=== PATIENT | male | born 1975 | race American Indian/Alaskan Native ===

== ENCOUNTER 2017-11-01 10:23 | Emergency (ER) | payer SELFPAY ==
[2017-11-01] MEDS ORDERED: BENTYL IM ONE (13:23)
[2017-11-01] MEDS ORDERED: ALUM-MAG HYDROX-SIMETH 200-200-20MG/5ML PO ONE (13:23)
--- NOTE | 2017-11-01 13:23 | Emergency Department Report ---
Blank Doc - Documentation Documentation: Patient is a 42-year-old male who presented with 2 days of epigastric discomfort. Patient states the pain as a burning sensation. Patient has some mild nausea as well. The patient denies any heavy drinking or abnormal foods. The patient will have labs drawn including a lipase as well as ultrasound of the abdomen to rule out gallstones.
[2017-11-01 13:56] LABS: Basophils # (Auto) 0.1 K/mm3 (0.0-0.1); Basophils % (Auto) 0.4 % (0.0-1.8); Hematocrit 43.7 % (35.5-45.6); Lymphocytes # (Auto) 1.4 K/mm3 (1.2-5.4); Lymphocytes % (Auto) 9.7 % (13.4-35.0); Mean Corpuscular HGB Conc 34 % (32-34); Mean Corpuscular Hemoglobin 32 pg (28-32); Mean Corpuscular Volume 92 fl (84-94); Monocytes # (Auto) 1.1 K/mm3 (0.0-0.8); Monocytes % (Auto) 7.4 % (0.0-7.3); Platelet Count 189 K/mm3 (140-440); Red Blood Count 4.75 M/mm3 (3.65-5.03); Red Cell Distribution Width 13.5 % (13.2-15.2)
[2017-11-01 14:06] LABS: Alanine Aminotransferase 34 units/L (7-56); Albumin 4.2 g/dL (3.9-5); BUN/Creatinine Ratio 10; Blood Urea Nitrogen 10 mg/dL (9-20); Calcium 9.2 mg/dL (8.4-10.2); Hemolysis Index 5; Lipase 22 units/L (13-60)
[2017-11-01] MEDS ORDERED: NORCO 5/325 PO ONE ×2 (14:39→17:04)
[2017-11-01] MEDS ORDERED: NORCO 5/325 ONE (14:40)
--- NOTE | 2017-11-01 15:00 | Ultrasound Report ---
Limited abdominal ultrasound: Right upper quadrant/epigastric pain. Limited quality exam due to patient habitus. Images of the liver are grossly normal. The gallbladder is relatively well visualized and also appears unremarkable and the CBD diameter is 3.4 mm. The mid body of the pancreas is visualized and appears normal. The pancreatic head and tail however are not well seen. The right renal length is 10.6 cm and is echogenically unremarkable. The transverse diameter of the proximal abdominal aorta is 2.2 cm. Impression: Limited quality study. No pathology identified.
--- NOTE | 2017-11-01 17:05 | Emergency Department Report ---
ED Abdominal Pain HPI - General Chief Complaint: Abdominal Pain Stated Complaint: CHEST /ABD PAIN Time Seen by Provider: 11/01/17 13:15 Source: patient Mode of arrival: Ambulatory Limitations: No Limitations - History of Present Illness Initial Comments: This is a 42 y.o. male presents with abdominal pain and lower chest pain for 2 days. Patient states he could hardly get out of bed this morning. History of diverticulosis. He is trying to watch diet to loose weight. He started eating nutragrain bars last week. He felt fine until this Sunday. He has not tried taking anything over the counter. Reports being treated for diverticulitis several years ago and try to avoid nuts but it is hard to do. Denies nausea, vomiting, diarrhea, and chest pain. MD Complaint: abdominal pain -: days(s) (2) Location: diffuse Radiation: chest Migration to: epigastric Severity scale (0 -10): 10 Quality: cramping, sharp Consistency: intermittent Improves With: nothing Worsens With: movement Associated Symptoms: fever - Related Data Previous Rx's Medication Instructions Recorded Last Taken Type Ciprofloxacin HCl [Cipro] 500 mg PO BID 10 Days #20 tablet 11/01/17 Unknown Rx Ondansetron [Zofran TAB] 4 mg PO Q8HR PRN #20 tablet 11/01/17 Unknown Rx metroNIDAZOLE [Flagyl] 500 mg PO Q8HR 10 Days #30 tablet 11/01/17 Unknown Rx Allergies Allergy/AdvReac Type Severity Reaction Status Date / Time No Known Allergies Allergy Unverified 11/01/17 13:39 ED Review of Systems ROS: Stated complaint: CHEST /ABD PAIN Other details as noted in HPI Constitutional: fever. denies: chills Respiratory: denies: cough, shortness of breath, wheezing Cardiovascular: denies: chest pain, palpitations Gastrointestinal: abdominal pain (diffuse pain). denies: nausea, vomiting, diarrhea, constipation Neurological: denies: headache, weakness, paresthesias ED Past Medical Hx - Past Medical History Previous Medical History?: Yes Additional medical history: Diverticulitis - Surgical History Past Surgical History?: No - Social History Smoking Status: Never Smoker Substance Use Type: Alcohol - Medications Home Medications: Home Medications Medication Instructions Recorded Confirmed Last Taken Type Ciprofloxacin HCl [Cipro] 500 mg PO BID 10 Days #20 tablet 11/01/17 Unknown Rx Ondansetron [Zofran TAB] 4 mg PO Q8HR PRN #20 tablet 11/01/17 Unknown Rx metroNIDAZOLE [Flagyl] 500 mg PO Q8HR 10 Days #30 tablet 11/01/17 Unknown Rx ED Physical Exam - General Limitations: No Limitations General appearance: alert, in no apparent distress - Respiratory Respiratory exam: Present: normal lung sounds bilaterally. Absent: respiratory distress - Cardiovascular Cardiovascular Exam: Present: regular rate, normal rhythm. Absent: systolic murmur, diastolic murmur, rubs, gallop - GI/Abdominal GI/Abdominal exam: Present: soft, tenderness (RLQ, RUQ, LLQ), hyperactive bowel sounds - Neurological Exam Neurological exam: Present: alert, oriented X3, normal gait - Skin Skin exam: Present: warm, dry, intact, normal color. Absent: rash ED Course Vital Signs 11/01/17 11/01/17 11/01/17 10:42 14:41 18:23 Temperature 99 F 97.8 F Pulse Rate 98 H 84 Respiratory 20 16 18 Rate Blood Pressure 124/79 Blood Pressure 128/79 [Left] O2 Sat by Pulse 95 99 Oximetry ED Medical Decision Making - Lab Data Result diagrams: 11/01/17 13:28 11/01/17 13:28 - Medical Decision Making This is a 42 y.o. male presents with abdominal pain and chest pain for 2 days. Patient was examined by me. Obtained CBC, CMP, US, and CT of abdomen and pelvis. CT read by radiologist and acute diverticulitis. Discussed results with patient. Given metronidazole and norco once in ER. Discharged home in stable condition. Start metronidazole 500 mg po tid x 10 days, cipro 500 mg po bid x 10 days, zofran. Discussed prevention options. F/U with PCP or gastroenterology. Critical care attestation.: If time is entered above; I have spent that time in minutes in the direct care of this critically ill patient, excluding procedure time. ED Disposition Clinical Impression: Acute diverticulitis Disposition: - TO HOME OR SELFCARE Is pt being admited?: No Does the pt Need Aspirin: No Condition: Stable Instructions: Diverticulitis (ED), Diverticulitis Diet (ED) Additional Instructions: Start a high fiber diet to prevent reoccurrence of infection. Avoid consuming seeds, corn, and nuts. Follow up with primary care provider or gastroenterology. Need colonoscopy. Prescriptions: Ciprofloxacin HCl [Cipro] 500 mg PO BID 10 Days #20 tablet metroNIDAZOLE [Flagyl] 500 mg PO Q8HR 10 Days #30 tablet Ondansetron [Zofran TAB] 4 mg PO Q8HR PRN #20 tablet PRN Reason: Nausea Referrals: [facility] [Provider Group] - 3-5 Days [facility] [Outside] - 3-[address] [facility] [Outside] - 3-5 Days Forms: Work/School Release Form(ED) Time of Disposition: 18:06 Print Language: WELSH
--- NOTE | 2017-11-01 17:53 | Cat Scan Report ---
FINAL REPORT EXAM: CT ABDOMEN PELVIS WO CON HISTORY: abdominal pain, US limited quality TECHNIQUE: CT abdomen and pelvis with intravenous contrast PRIORS: None. FINDINGS: No acute abnormality identified in the lung bases. No focal abnormality identified within the liver parenchyma. The spleen demonstrates normal size and attenuation. No pancreatic abnormalities seen. The kidneys demonstrate symmetric contrast enhancement. No evidence of hydronephrosis. The adrenal glands are unremarkable Abdominal aorta is normal in caliber. No pathologically enlarged lymph nodes are identified. No signs of free fluid or free air No evidence of small bowel dilatation. There is strandy and inflammatory pericolonic change within the right upper quadrant centered approximately at the hepatic flexure. There are numerous diverticula present throughout the colon. No focal extra luminal abscess collection or free air identified. The appendix is identified and is unremarkable. Urinary bladder is unremarkable. IMPRESSION: Right upper quadrant pericolonic inflammatory changes with multiple diverticula present. Findings are most consistent with acute diverticulitis
[2017-11-01] MEDS ORDERED: FLAGYL PO ONE (18:07)
[2017-11-01 18:24] VITALS: BP 128/79
== END 2017-11-01 18:47 | disposition home or self-care (01) ==
LOC: ED 10:23
DX: K57.92 Diverticulitis of intestine, part unspecified, without perforation or abscess without bleeding (principal)
CPT/HCPCS: 36415; 74176; 76705; 80053; 83690; 85025; 93005; 93010; 96372; 99284; J0500

== ENCOUNTER 2017-12-05 12:57 | Emergency (ER) | payer SELFPAY | END 2017-12-05 14:03 | disposition left against medical advice (07) | LOC: ED 12:57 | DX: M79.604 Pain in right leg (principal); M79.601 Pain in right arm; Z53.21 Procedure and treatment not carried out due to patient leaving prior to being seen by health care provider ==

== ENCOUNTER 2018-01-16 08:40 | Emergency (ER) | payer OTHER ==
[2018-01-16 09:43] LABS: Basophils % (Auto) 0.4 % (0.0-1.8); Eosinophils % (Auto) 0.2 % (0.0-4.3); Hematocrit 43.3 % (35.5-45.6); Hemoglobin 15.2 gm/dl (11.8-15.2); Lymphocytes # (Auto) 1.9 K/mm3 (1.2-5.4); Lymphocytes % (Auto) 14.8 % (13.4-35.0); Mean Corpuscular HGB Conc 35 % (32-34); Mean Corpuscular Hemoglobin 32 pg (28-32); Mean Corpuscular Volume 90 fl (84-94); Monocytes # (Auto) 1.2 K/mm3 (0.0-0.8); Monocytes % (Auto) 9.1 % (0.0-7.3); Platelet Count 186 K/mm3 (140-440); Red Blood Count 4.83 M/mm3 (3.65-5.03); Red Cell Distribution Width 13.1 % (13.2-15.2)
[2018-01-16 09:55] LABS: Alanine Aminotransferase 16 units/L (7-56); Albumin 4.4 g/dL (3.9-5); BUN/Creatinine Ratio 12; Blood Urea Nitrogen 12 mg/dL (9-20); Calcium 9.4 mg/dL (8.4-10.2); Hemolysis Index 3; Lipase 40 units/L (13-60)
[2018-01-16] MEDS ORDERED: PEPCID PO ONE (10:12)
[2018-01-16] MEDS ORDERED: ALUM-MAG HYDROX-SIMETH 200-200-20MG/5ML PO ONE (10:12)
--- NOTE | 2018-01-16 10:15 | Emergency Department Report ---
Blank Doc - Documentation Documentation: Patient is a 42-year-old [place] male who has a past medical history of diverticulitis who is presenting with epigastric pain for last 2 days. Patient states constant pain 8 out of 10 in severity. Patient states there is no chest pain shortness of breath nausea vomiting diarrhea. Patient states the pain In the Epigastric Area Is Nagging and Will Not Stop. The Patient States His Diverticulitis Has Never Presented in This Fashion before. Patient's Laboratory Studies Are Mostly unremarkable however because of his tenderness CT abdomen and pelvis has been ordered.
[2018-01-16 10:31] LABS: Bilirubin,Urine NEG (Negative); Blood,Urine NEG (Negative); Color,Urine Yellow (Yellow); Mucus,Urine FEW /HPF; Protein,Urine <15 mg/dL mg/dL (Negative)
--- NOTE | 2018-01-16 11:04 | Cat Scan Report ---
CT ABDOMEN PELVIS WITHOUT CONTRAST: HISTORY: Upper abdominal pain. COMPARISON: 11/01/17. TECHNIQUE: Helical CT in 1.25mm intervals without IV contrast. Sagittal and coronal reconstructions. FINDINGS: Lung bases: Normal. Liver: Normal. Biliary system: Normal. Pancreas: Normal. Spleen: Normal. Kidneys/ureters/bladder: Normal. Adrenal glands: Normal. Aorta: Normal. Intestines: There are scattered diverticula throughout the length of the colon. There is focal circumferential bowel wall thickening in the distal transverse colon with surrounding inflammatory fat stranding consistent with diverticulitis. No free air or abscess is identified. This area of diverticulitis this slightly distal to the diverticulitis seen on 11/01/17 exam. The remainder of the bowel loops are unremarkable given no oral contrast was administered. Appendix: Normal. Ascites: None. Adenopathy: None. Musculoskeletal: Normal. IMPRESSION: Acute diverticulitis of the distal transverse colon.
[2018-01-16] MEDS ORDERED: FLAGYL PO ONE (11:14)
[2018-01-16] MEDS ORDERED: LEVAQUIN PO ONE (11:14)
--- NOTE | 2018-01-16 11:16 | Emergency Department Report ---
ED Abdominal Pain HPI - General Chief Complaint: Abdominal Pain Stated Complaint: ABD PAIN Time Seen by Provider: 01/16/18 10:10 Source: patient Mode of arrival: Ambulatory Limitations: No Limitations - History of Present Illness Initial Comments: This is a 42-year-old male nontoxic, well nourished in appearance, no acute signs of distress presents to the ED with c/o of diffuse abdominal pain x2 days. Patient stated has history of diverticulitis and symptoms are very similar. Patient denies any nausea, vomiting, fever, chills, headache, stiff neck, constipation, diarrhea, back pain or urinary symptoms. Patient denies follow up with a GI doctor as he stated that he is busy at work. Patient denies any allergies. Past medical history includes diverticulitis. MD Complaint: abdominal pain -: days(s) (2) Location: diffuse Radiation: none Migration to: no migration Severity: mild Severity scale (0 -10): 8 Quality: cramping, aching Consistency: constant Improves With: nothing Worsens With: nothing Associated Symptoms: denies other symptoms. denies: nausea, vomiting, diarrhea , fever, chills, constipation, dysuria, hematemesis, hematochezia, melena, hematuria, anorexia, syncope - Related Data Previous Rx's Medication Instructions Recorded Last Taken Type Ciprofloxacin HCl [Cipro] 500 mg PO BID 10 Days #20 tablet 11/01/17 Unknown Rx Ondansetron [Zofran TAB] 4 mg PO Q8HR PRN #20 tablet 11/01/17 Unknown Rx metroNIDAZOLE [Flagyl] 500 mg PO Q8HR 10 Days #30 tablet 11/01/17 Unknown Rx Ciprofloxacin HCl [Ciprofloxacin 500 mg PO Q12HR #20 tab 01/16/18 Unknown Rx TAB] metroNIDAZOLE [Flagyl] 500 mg PO Q8HR 10 Days #30 tablet 01/16/18 Unknown Rx Allergies Allergy/AdvReac Type Severity Reaction Status Date / Time No Known Allergies Allergy Unverified 11/01/17 13:39 ED Review of Systems ROS: Stated complaint: ABD PAIN Other details as noted in HPI Constitutional: denies: chills, fever Eyes: denies: eye pain, eye discharge, vision change ENT: denies: ear pain, throat pain Respiratory: denies: cough, shortness of breath, wheezing Cardiovascular: denies: chest pain, palpitations Endocrine: no symptoms reported Gastrointestinal: abdominal pain. denies: nausea, diarrhea Genitourinary: denies: urgency, dysuria Musculoskeletal: denies: back pain, joint swelling, arthralgia Skin: denies: rash, lesions Neurological: denies: headache, weakness, paresthesias Psychiatric: denies: anxiety, depression Hematological/Lymphatic: denies: easy bleeding, easy bruising ED Past Medical Hx - Past Medical History Previous Medical History?: Yes Additional medical history: Diverticulitis - Surgical History Past Surgical History?: No - Social History Smoking Status: Current Every Day Smoker Substance Use Type: Alcohol, Marijuana, Prescribed - Medications Home Medications: Home Medications Medication Instructions Recorded Confirmed Last Taken Type Ciprofloxacin HCl [Cipro] 500 mg PO BID 10 Days #20 tablet 11/01/17 Unknown Rx Ondansetron [Zofran TAB] 4 mg PO Q8HR PRN #20 tablet 11/01/17 Unknown Rx metroNIDAZOLE [Flagyl] 500 mg PO Q8HR 10 Days #30 tablet 11/01/17 Unknown Rx Ciprofloxacin HCl [Ciprofloxacin 500 mg PO Q12HR #20 tab 01/16/18 Unknown Rx TAB] metroNIDAZOLE [Flagyl] 500 mg PO Q8HR 10 Days #30 tablet 01/16/18 Unknown Rx ED Physical Exam - General Limitations: No Limitations General appearance: alert, in no apparent distress - Head Head exam: Present: atraumatic, normocephalic - Eye Eye exam: Present: normal appearance Pupils: Present: normal accommodation - ENT ENT exam: Present: normal exam, mucous membranes moist - Neck Neck exam: Present: normal inspection, full ROM. Absent: tenderness, meningismus - Respiratory Respiratory exam: Present: normal lung sounds bilaterally. Absent: respiratory distress, wheezes, rales, rhonchi, stridor - Cardiovascular Cardiovascular Exam: Present: regular rate, normal rhythm, normal heart sounds. Absent: irregular rhythm, systolic murmur, diastolic murmur, rubs, gallop - GI/Abdominal GI/Abdominal exam: Present: soft, tenderness (diffuse), normal bowel sounds. Absent: distended, guarding, rebound, rigid, diminished bowel sounds - Expanded GI/Abdominal Exam Expanded GI/Abdominal exam: Absent: psoas sign, obturator sign, heel tap sign, Kingston's sign, Rovsing's sign, tenderness at Mcbur[place]'s Point, ascites - Rectal Rectal exam: Present: deferred - Extremities Exam Extremities exam: Present: normal inspection, full ROM, normal capillary refill - Back Exam Back exam: Present: normal inspection, full ROM - Neurological Exam Neurological exam: Present: alert, oriented X3, normal gait - Psychiatric Psychiatric exam: Present: normal affect, normal mood - Skin Skin exam: Present: warm, dry, intact, normal color. Absent: rash ED Course Vital Signs 01/16/18 08:42 Temperature 98.4 F Pulse Rate 123 H Respiratory 20 Rate Blood Pressure 132/82 O2 Sat by Pulse 96 Oximetry - Reevaluation(s) Reevaluation #1: 01/16/18 11:25 Patient is speaking in full sentences with no signs of distress noted. - Consultations Consultation #1: 01/16/18 11:25 Patient has been consulted with Dr. Perez about patient history, physical exam , and labs/CT results and examined and screened patient and discharge with antibiotics with follow-up. ED Medical Decision Making - Lab Data Result diagrams: 01/16/18 08:54 01/16/18 08:54 - Medical Decision Making This is a 42-year-old male that presents with diverticulitis. Patient stable was examined by me and Dr. Perez. Labs obtained within normal limits. CT obtained and dictated by the radiologist. Patient is notified of the results with no questions noted by the patient. Patient received his first dose of Flagyl and Levo as no cipro in the hospital. Patient is discharged with Cipro and Flagyl. Patient was educated on diverticulitis diet. Patient was instructed to Follow-up with a primary care/gastroenterology doctor in 3-5 days or if symptoms worsen and continue return to emergency room as soon as possible. At time of discharge, the patient does not seem toxic or ill in appearance. No acute signs of distress noted. Patient agrees to discharge treatment plan of care. No further questions noted by the patient. Critical care attestation.: If time is entered above; I have spent that time in minutes in the direct care of this critically ill patient, excluding procedure time. ED Disposition Clinical Impression: Diverticulitis Disposition: DC-01 TO HOME OR SELFCARE Is pt being admited?: No Does the pt Need Aspirin: No Condition: Stable Instructions: Diverticulitis (ED) Additional Instructions: Follow-up with a primary care/gastroenterology doctor in 3-5 days or if symptoms worsen and continue return to emergency room as soon as possible. Prescriptions: Ciprofloxacin HCl [Ciprofloxacin TAB] 500 mg PO Q12HR #20 tab metroNIDAZOLE [Flagyl] 500 mg PO Q8HR 10 Days #30 tablet Referrals: PRIMARY CAREMD [Primary Care Provider] - 3-5 Days BESSY GARZA MD [Staff Physician] - 3-5 Days [facility] [Outside] - 3-5 Days [facility] [Outside] - 3-5 Days Forms: Work/School Release Form(ED)
[2018-01-16 11:59] VITALS: BP 132/84
== END 2018-01-16 11:58 | disposition home or self-care (01) ==
LOC: ED 08:40
DX: K57.92 Diverticulitis of intestine, part unspecified, without perforation or abscess without bleeding (principal); F17.200 Nicotine dependence, unspecified, uncomplicated; F12.10 Cannabis abuse, uncomplicated
CPT/HCPCS: 36415; 74176; 80053; 81001; 83690; 85025; 99284

== ENCOUNTER 2018-11-29 22:34 | Emergency (ER) | payer OTHER ==
[2018-11-30 00:27] LABS: Bilirubin,Urine NEG (Negative); Blood,Urine MOD (Negative); Color,Urine Yellow (Yellow); Mucus,Urine FEW /HPF; Protein,Urine <15 mg/dL mg/dL (Negative); Urobilinogen,Urine < 2.0 mg/dL (<2.0)
[2018-11-30] MEDS ORDERED: TORADOL IV ONE (01:38)
--- NOTE | 2018-11-30 02:51 | Emergency Department Report ---
ED Male HPI - General Chief complaint: Urogenital-Male Stated complaint: BLOOD IN URINE Time Seen by Provider: 11/30/18 01:37 Source: patient Mode of arrival: Ambulatory Limitations: No Limitations - History of Present Illness Initial comments: Patient is a 43-year-old -[place] male who presents for hematuria 3 days patient has history of diverticulitis is no fever no chills no abdominal pain no nausea vomiting no back pain patient denies history of renal stones states pink urination there is no complaint no rashes no sores no open lesions patient is tolerating by mouth there is no nausea vomiting. MD Complaint: dysuria Onset/Timin -: days(s) Location: penis Radiation: none Severity: moderate Severity scale (0 -10): 4 Quality: aching Consistency: intermittent Improves with: none Worsens with: none denies: discharge, swelling, mass, urinary retention, blood in urine - Related Data Sexually active: Yes Previous Rx's Medication Instructions Recorded Last Taken Type Ciprofloxacin HCl [Cipro] 500 mg PO BID 10 Days #20 tablet 11/01/17 Unknown Rx Ondansetron [Zofran TAB] 4 mg PO Q8HR PRN #20 tablet 11/01/17 Unknown Rx metroNIDAZOLE [Flagyl] 500 mg PO Q8HR 10 Days #30 tablet 11/01/17 Unknown Rx Ciprofloxacin HCl [Ciprofloxacin 500 mg PO Q12HR #20 tab 01/16/18 Unknown Rx TAB] metroNIDAZOLE [Flagyl] 500 mg PO Q8HR 10 Days #30 tablet 01/16/18 Unknown Rx Ibuprofen 800 mg PO TID PRN #30 tablet 11/30/18 Unknown Rx levoFLOXacin [Levaquin TAB] 500 mg PO QDAY #10 tablet 11/30/18 Unknown Rx Allergies Allergy/AdvReac Type Severity Reaction Status Date / Time No Known Allergies Allergy Unverified 11/01/17 13:39 ED Review of Systems ROS: Stated complaint: BLOOD IN URINE Other details as noted in HPI Constitutional: denies: chills, fever Eyes: denies: eye pain, eye discharge, vision change ENT: denies: ear pain, throat pain Respiratory: denies: cough, shortness of breath, wheezing Cardiovascular: denies: chest pain, palpitations Endocrine: no symptoms reported Gastrointestinal: denies: abdominal pain, nausea, vomiting, diarrhea, constipation, hematemesis, melena, hematochezia Genitourinary: frequency, hematuria. denies: urgency, dysuria, discharge, testicular pain, testicular mass Musculoskeletal: back pain. denies: joint swelling, arthralgia Skin: lesions, pruritus Neurological: denies: headache, weakness, paresthesias Psychiatric: denies: anxiety, depression Hematological/Lymphatic: denies: easy bleeding, easy bruising ED Past Medical Hx - Past Medical History Previous Medical History?: No Additional medical history: Diverticulitis - Surgical History Past Surgical History?: No - Social History Smoking Status: Current Every Day Smoker Substance Use Type: Alcohol - Medications Home Medications: Home Medications Medication Instructions Recorded Confirmed Last Taken Type Ciprofloxacin HCl [Cipro] 500 mg PO BID 10 Days #20 tablet 11/01/17 Unknown Rx Ondansetron [Zofran TAB] 4 mg PO Q8HR PRN #20 tablet 11/01/17 Unknown Rx metroNIDAZOLE [Flagyl] 500 mg PO Q8HR 10 Days #30 tablet 11/01/17 Unknown Rx Ciprofloxacin HCl [Ciprofloxacin 500 mg PO Q12HR #20 tab 01/16/18 Unknown Rx TAB] metroNIDAZOLE [Flagyl] 500 mg PO Q8HR 10 Days #30 tablet 01/16/18 Unknown Rx Ibuprofen 800 mg PO TID PRN #30 tablet 11/30/18 Unknown Rx levoFLOXacin [Levaquin TAB] 500 mg PO QDAY #10 tablet 11/30/18 Unknown Rx ED Physical Exam - General Limitations: No Limitations General appearance: alert, in no apparent distress - Head Head exam: Present: atraumatic, normocephalic - Eye Eye exam: Present: normal appearance, PERRL, EOMI Pupils: Present: normal accommodation - ENT ENT exam: Present: mucous membranes moist - Neck Neck exam: Present: normal inspection - Respiratory Respiratory exam: Present: normal lung sounds bilaterally. Absent: respiratory distress, wheezes, stridor, chest wall tenderness - Cardiovascular Cardiovascular Exam: Present: regular rate, normal rhythm, normal heart sounds. Absent: systolic murmur, diastolic murmur, rubs, gallop - GI/Abdominal GI/Abdominal exam: Present: soft, normal bowel sounds. Absent: tenderness, rebound, rigid, bruit, hernia - Rectal Rectal exam: Present: deferred - Extremities Exam Extremities exam: Present: normal inspection - Back Exam Back exam: Present: normal inspection, full ROM. Absent: tenderness, CVA tenderness (R), CVA tenderness (L), muscle spasm, paraspinal tenderness, vertebral tenderness, rash noted - Neurological Exam Neurological exam: Present: alert, oriented X3, CN II-XII intact, normal gait, reflexes normal - Psychiatric Psychiatric exam: Present: normal affect, normal mood - Skin Skin exam: Present: warm, dry, intact, normal color. Absent: rash, cyanosis, erythema, vesicles, ecchymosis ED Course Vital Signs 11/29/18 23:29 Temperature 98.8 F Pulse Rate 103 H Respiratory 20 Rate Blood Pressure 121/84 O2 Sat by Pulse 99 Oximetry ED Medical Decision Making - Lab Data Result diagrams: 11/30/18 03:20 11/30/18 03:20 Labs 11/30/18 11/30/18 11/30/18 00:00 03:20 03:20 WBC 5.1 RBC 4.96 Hgb 15.8 H Hct 45.4 MCV 92 MCH 32 MCHC 35 H RDW 12.9 L Plt Count 233 Baso % (Auto) Salvage Supervisor Seg Neutrophils % Salvage Supervisor PT INR APTT Sodium 136 L Potassium 4.1 Chloride 99.8 Carbon Dioxide 22 Anion Gap 18 BUN 16 Creatinine 0.9 Estimated GFR > 60 BUN/Creatinine Ratio 18 Glucose 86 Calcium 8.9 Total Bilirubin 0.30 ALT 31 Alkaline Phosphatase 65 Total Protein 7.1 Albumin 4.2 Albumin/Globulin Ratio 1.4 Urine Color Yellow Urine Turbidity Clear Urine pH 5.0 Ur Specific [place] 1.020 Urine Protein <15 mg/dl Urine Glucose (UA) Neg Urine Ketones Neg Urine Blood Mod Urine Nitrite Neg Urine Bilirubin Neg Urine Urobilinogen < 2.0 Ur Leukocyte Esterase Neg Urine WBC (Auto) 7.0 H Urine RBC (Auto) 5.0 Urine Mucus Few 11/30/18 03:20 WBC RBC Hgb Hct MCV MCH MCHC RDW Plt Count Baso % (Auto) Seg Neutrophils % PT 13.7 INR 0.99 APTT 32.1 Sodium Potassium Chloride Carbon Dioxide Anion Gap BUN Creatinine Estimated GFR BUN/Creatinine Ratio Glucose Calcium Total Bilirubin ALT Alkaline Phosphatase Total Protein Albumin Albumin/Globulin Ratio Urine Color Urine Turbidity Urine pH Ur Specific [place] Urine Protein Urine Glucose (UA) Urine Ketones Urine Blood Urine Nitrite Urine Bilirubin Urine Urobilinogen Ur Leukocyte Esterase Urine WBC (Auto) Urine RBC (Auto) Urine Mucus - Radiology Data Radiology results: report reviewed, image reviewed FINDINGS: Visualized lower thorax: No significant abnormality. Liver: Normal size and attenuation. Spleen: Normal size and attenuation. Gallbladder and biliary system: Normal. Pancreas: Normal. Adrenals: Normal. Kidneys: There are no kidney stones or ureteral stones. There is no hydronephrosis.. GI tract: There are diverticula of the sigmoid and left common. There is no div erticulitis or colitis. The stomach and small bowel and appendix are normal. . Lymph nodes and mesentery: Normal. Vasculature: Normal.. Bladder: Normal. Reproductive organs: Normal. Peritoneum: There is no ascites or free air, abscess or adenopathy.. Musculoskeletal structures: No significant abnormality. IMPRESSION: There is no acute intra-abdominal abnormality. There are no kidney stones or ureteral stones. There is no hydronephrosis. . This document is electronically signed by Maximus Perez MD., November 30 2018 03:23:26 AM ET Transcribed By: CO Dictated By: MAXIMUS PEREZ MD Electronically Authenticated By: MAXIMUS PEREZ MD Signed Date/Time: 11/30/18 0325 DD/ 0238 TD/TT: 11/30/18 0239 - Medical Decision Making CT Abd and Pelvis: normal CT scan on hydronephrosis, no stones no pyelonephritis, UA: mod rbc, and wbc plan levaquin po x 10 days follow up with urology in 2-3 days pt given referral to same. pt verbalized agreement and understanding of same. Critical care attestation.: If time is entered above; I have spent that time in minutes in the direct care of this critically ill patient, excluding procedure time. ED Disposition Clinical Impression: UTI (urinary tract infection) Qualifiers: Urinary tract infection type: acute cystitis Hematuria presence: with hematuria Qualified Code(s): N30.01 - Acute cystitis with hematuria Hematuria Qualifiers: Hematuria type: unspecified type Qualified Code(s): R31.9 - Hematuria, unspecified Disposition: - TO HOME OR SELFCARE Is pt being admited?: No Does the pt Need Aspirin: No Condition: Stable Instructions: Urinary Tract Infection in Men (ED) Prescriptions: Ibuprofen 800 mg PO TID PRN #30 tablet PRN Reason: pain levoFLOXacin [Levaquin TAB] 500 mg PO QDAY #10 tablet Referrals: PRIMARY CARE, [Primary Care Provider] - 3-5 Days JENS MAO MD [Staff Physician] - 3-5 Days Forms: Work/School Release Form(ED) Time of Disposition: 04:29
--- NOTE | 2018-11-30 03:25 | Cat Scan Report ---
PROCEDURE: CT ABDOMEN PELVIS WO CON TECHNIQUE: Computerized axial tomography of the abdomen and pelvis was performed without intravenous contrast. This study is performed without intravascular contrast material and its sensitivity for ab dominal and pelvic pathology, including neoplasms, inflammation, abscess, free fluid, thrombosis, art erial dissection and infarction, is reduced compared with a contrast enhanced study. CT DOSE LENGTH PRODUCT: mGycm HISTORY: renal stones COMPARISONS: None . FINDINGS: Visualized lower thorax: No significant abnormality. Liver: Normal size and attenuation. Spleen: Normal size and attenuation. Gallbladder and biliary system: Normal. Pancreas: Normal. Adrenals: Normal. Kidneys: There are no kidney stones or ureteral stones. There is no hydronephrosis.. GI tract: There are diverticula of the sigmoid and left common. There is no diverticulitis or coliti s. The stomach and small bowel and appendix are normal. . Lymph nodes and mesentery: Normal. Vasculature: Normal.. Bladder: Normal. Reproductive organs: Normal. Peritoneum: There is no ascites or free air, abscess or adenopathy.. Musculoskeletal structures: No significant abnormality. IMPRESSION: There is no acute intra-abdominal abnormality. There are no kidney stones or ureteral st ones. There is no hydronephrosis. . This document is electronically signed by Erwin Coulter MD., November 30 2018 03:23:26 AM ET
[2018-11-30 03:47] LABS: Alanine Aminotransferase 31 units/L (7-56); Albumin 4.2 g/dL (3.9-5); BUN/Creatinine Ratio 18; Blood Urea Nitrogen 16 mg/dL (9-20); Calcium 8.9 mg/dL (8.4-10.2); Hemolysis Index 41
[2018-11-30 03:50] LABS: Hematocrit 45.4 % (35.5-45.6); Hemoglobin 15.8 gm/dl (11.8-15.2); Mean Corpuscular HGB Conc 35 % (32-34); Mean Corpuscular Volume 92 fl (84-94); Platelet Count 233 K/mm3 (140-440); Red Blood Count 4.96 M/mm3 (3.65-5.03); Red Cell Distribution Width 12.9 % (13.2-15.2)
[2018-11-30 04:00] LABS: INR 0.99 (0.87-1.13)
[2018-11-30 04:01] LABS: Partial Thromboplastin Time 32.1 Sec. (24.2-36.6)
[2018-11-30 04:49] VITALS: BP 140/94
[2018-11-30 05:08] LABS: Band Neutrophils # (Manual) 0.3 K/mm3; Basophils % (Manual) 0 % (0.0-1.8); Eosinophils % (Manual) 0 % (0.0-4.3); Platelet Estimate Consistent w Auto; RBC Morphology Normal; Total Cells Counted 100
== END 2018-11-30 04:49 | disposition home or self-care (01) ==
LOC: ED 22:34
DX: N30.01 Acute cystitis with hematuria (principal); F17.200 Nicotine dependence, unspecified, uncomplicated
CPT/HCPCS: 36415; 74176; 80053; 81001; 85007; 85025; 85610; 85730; 99284; J1885

== ENCOUNTER 2019-04-04 08:57 | Emergency (ER) | payer OTHER ==
[2019-04-04] MEDS ORDERED: ASPIRIN PO ONE (09:04)
--- NOTE | 2019-04-04 09:29 | Emergency Department Report ---
ED Chest Pain HPI - General Chief Complaint: Chest Pain Stated Complaint: CHEST PAIN Time Seen by Provider: 04/04/19 09:22 Source: EMS Mode of arrival: Stretcher Limitations: No Limitations - History of Present Illness Initial Comments: This is a 44 year old male who gives a somewhat inaccurate history. He states he was admitted here for chest pain before. This isn't accurate. He was seen at 2018 at discharge. In any case, he was arrested by a mounted police. He states that it was a traffic stop and that a warrant for his arrest turned up incidentally for failure to pay child support. He states that he was rather upset about the prospect of going to long term and developed a sharp chest pain which radiated to his right shoulder. He denied nausea vomiting diaphoresis or dyspnea. The chest pain has abated. He is in the treatment area discussing his situation with the mounted police. He is not complaining of chest pain at this time. He does admit to noncompliance with his blood pressure medication. MD Complaint: chest pain -: Sudden Onset: during rest (associated with stress) Pain Location: substernal Pain Radiation: RUE Severity scale (0 -10): 0 Quality: sharp Consistency: now resolved (largely) Improves With: nothing Worsens With: nothing Context: other (above stressor) re: denies: nausea, vomting, diaphoresis, dyspnea, sense of impending doom Other Symptoms: denies: cough, fever, syncope Treatments Prior to Arrival: none - Related Data Previous Rx's Medication Instructions Recorded Last Taken Type Ciprofloxacin HCl [Cipro] 500 mg PO BID 10 Days #20 tablet 11/01/17 Unknown Rx Ondansetron [Zofran TAB] 4 mg PO Q8HR PRN #20 tablet 11/01/17 Unknown Rx metroNIDAZOLE [Flagyl] 500 mg PO Q8HR 10 Days #30 tablet 11/01/17 Unknown Rx Ciprofloxacin HCl [Ciprofloxacin 500 mg PO Q12HR #20 tab 01/16/18 Unknown Rx TAB] metroNIDAZOLE [Flagyl] 500 mg PO Q8HR 10 Days #30 tablet 01/16/18 Unknown Rx Ibuprofen [Ibuprofen 800] 800 mg PO TID PRN #30 tablet 11/30/18 Unknown Rx levoFLOXacin [Levaquin TAB] 500 mg PO QDAY #10 tablet 11/30/18 Unknown Rx Allergies Allergy/AdvReac Type Severity Reaction Status Date / Time No Known Allergies Allergy Unverified 11/01/17 13:39 Heart Score - HEART Score History: Slightly suspicious EKG: Normal Age: < 45 Risk factors: 1-2 risk factors Troponin: < normal limit HEART Score: 1 - Critical Actions Critical Actions: 0-3 pts:0.9-1.7%risk of adverse cardiac event.Candidate for discharge ED Review of Systems ROS: Stated complaint: CHEST PAIN Other details as noted in HPI Constitutional: denies: chills, fever Eyes: denies: eye pain, eye discharge, vision change ENT: denies: ear pain, throat pain Respiratory: denies: cough, shortness of breath, wheezing Cardiovascular: chest pain. denies: palpitations Endocrine: no symptoms reported Gastrointestinal: denies: abdominal pain, nausea, diarrhea Genitourinary: denies: urgency, dysuria Musculoskeletal: denies: back pain, joint swelling, arthralgia Skin: denies: rash, lesions Neurological: denies: headache, weakness, paresthesias Psychiatric: denies: anxiety, depression Hematological/Lymphatic: denies: easy bleeding, easy bruising ED Past Medical Hx - Past Medical History Previous Medical History?: Yes Additional medical history: Diverticulitis - Surgical History Past Surgical History?: No - Social History Smoking Status: Current Every Day Smoker Substance Use Type: Alcohol - Medications Home Medications: Home Medications Medication Instructions Recorded Confirmed Last Taken Type Ciprofloxacin HCl [Cipro] 500 mg PO BID 10 Days #20 tablet 11/01/17 Unknown Rx Ondansetron [Zofran TAB] 4 mg PO Q8HR PRN #20 tablet 11/01/17 Unknown Rx metroNIDAZOLE [Flagyl] 500 mg PO Q8HR 10 Days #30 tablet 11/01/17 Unknown Rx Ciprofloxacin HCl [Ciprofloxacin 500 mg PO Q12HR #20 tab 01/16/18 Unknown Rx TAB] metroNIDAZOLE [Flagyl] 500 mg PO Q8HR 10 Days #30 tablet 01/16/18 Unknown Rx Ibuprofen [Ibuprofen 800] 800 mg PO TID PRN #30 tablet 11/30/18 Unknown Rx levoFLOXacin [Levaquin TAB] 500 mg PO QDAY #10 tablet 11/30/18 Unknown Rx ED Physical Exam - General Limitations: No Limitations General appearance: alert, in no apparent distress - Head Head exam: Present: atraumatic, normocephalic - Eye Eye exam: Present: normal appearance - ENT ENT exam: Present: mucous membranes moist - Neck Neck exam: Present: normal inspection - Respiratory Respiratory exam: Present: normal lung sounds bilaterally. Absent: respiratory distress - Cardiovascular Cardiovascular Exam: Present: regular rate, normal rhythm. Absent: systolic murmur, diastolic murmur, rubs, gallop - GI/Abdominal GI/Abdominal exam: Present: soft, normal bowel sounds. Absent: distended, tenderness, guarding, rebound, rigid - Rectal Rectal exam: Present: deferred - Extremities Exam Extremities exam: Present: normal inspection - Back Exam Back exam: Present: normal inspection - Neurological Exam Neurological exam: Present: alert, oriented X3, CN II-XII intact. Absent: motor sensory deficit - Psychiatric Psychiatric exam: Present: normal affect, normal mood - Skin Skin exam: Present: warm, dry, intact, normal color. Absent: rash ED Course Vital Signs 04/04/19 04/04/19 04/04/19 09:05 09:34 11:33 Temperature 97.7 F Pulse Rate 98 H 89 86 Respiratory 20 18 20 Rate Blood Pressure 170/110 Blood Pressure 160/97 137/93 [Left] O2 Sat by Pulse 99 98 97 Oximetry - Reevaluation(s) Reevaluation #1: Patient comfortable and essentially asymptomatic on reexamination. Explained disposition. 04/04/19 11:54 ED Medical Decision Making - Lab Data Result diagrams: 04/04/19 09:39 04/04/19 09:13 Laboratory Results - last 24 hr 04/04/19 04/04/19 09:13 09:39 WBC 4.3 L RBC 4.77 Hgb 15.0 Hct 43.6 MCV 91 MCH 31 MCHC 34 RDW 13.0 L Plt Count 194 [place] % (Auto) 9.3 H Eos % (Auto) 1.7 [place] # 0.4 Eos # 0.1 Baso # 0.0 Seg Neutrophils % Credit Risk Analytics Manager Seg Neutrophils # 1.1 L Sodium 142 Potassium 4.5 Chloride 105.6 Carbon Dioxide 19 L Anion Gap 22 BUN 10 Creatinine 0.9 Estimated GFR > 60 BUN/Creatinine Ratio 11 Glucose 99 Calcium 9.0 Troponin T < 0.010 Laboratory Results - last 24 hr 04/04/19 04/04/19 09:13 09:39 WBC 4.3 L RBC 4.77 Hgb 15.0 Hct 43.6 MCV 91 MCH 31 MCHC 34 RDW 13.0 L Plt Count 194 [place] % (Auto) 9.3 H Eos % (Auto) 1.7 [place] # 0.4 Eos # 0.1 Baso # 0.0 Seg Neutrophils % Credit Risk Analytics Manager Seg Neutrophils # 1.1 L Sodium 142 Potassium 4.5 Chloride 105.6 Carbon Dioxide 19 L Anion Gap 22 BUN 10 Creatinine 0.9 Estimated GFR > 60 BUN/Creatinine Ratio 11 Glucose 99 Calcium 9.0 Troponin T < 0.010 - EKG Data -: EKG Interpreted by Me EKG shows normal: sinus rhythm, axis, intervals, QRS complexes, ST-T waves Rate: normal - EKG Data Interpretation: no acute changes Critical care attestation.: If time is entered above; I have spent that time in minutes in the direct care of this critically ill patient, excluding procedure time. ED Disposition Clinical Impression: Elevated d-dimer Chest pain Qualifiers: Chest pain type: unspecified Qualified Code(s): R07.9 - Chest pain, unspecified Disposition: -09 OP ADMIT IP TO THIS HOSP Is pt being admited?: Yes Does the pt Need Aspirin: Yes Condition: Stable Instructions: Chest Pain (ED) Referrals: MARV CORRALES MD [Primary Care Provider] - 3-5 Days Time of Disposition: 11:53
[2019-04-04] MEDS ORDERED: NORVASC PO ONE (09:36)
[2019-04-04 09:49] LABS: Hematocrit 43.6 % (35.5-45.6); Mean Corpuscular HGB Conc 34 % (32-34); Mean Corpuscular Volume 91 fl (84-94); Platelet Count 194 K/mm3 (140-440); Red Blood Count 4.77 M/mm3 (3.65-5.03)
--- NOTE | 2019-04-04 10:20 | XRay Report ---
CHEST 1 VIEW 04/04/2019 9:04 AM INDICATION / CLINICAL INFORMATION: Chest Pain. COMPARISON: None available. FINDINGS: SUPPORT DEVICES: None. HEART / MEDIASTINUM: No significant abnormality. LUNGS / PLEURA: No significant pulmonary or pleural abnormality. No pneumothorax. ADDITIONAL FINDINGS: No significant additional findings. IMPRESSION: No acute findings. Signer Name: Patrice Rivas MD Signed: 04/04/2019 10:15 AM Workstation Name: [id number]
[2019-04-04 10:26] LABS: Eosinophils # (Auto) 0.1 K/mm3 (0.0-0.4); Eosinophils % (Auto) 1.7 % (0.0-4.3); Monocytes # (Auto) 0.4 K/mm3 (0.0-0.8); Monocytes % (Auto) 9.3 % (0.0-7.3)
[2019-04-04 10:27] LABS: BUN/Creatinine Ratio 11; Blood Urea Nitrogen 10 mg/dL (9-20); Hemolysis Index 163
[2019-04-04 11:34] VITALS: BP 137/93
[2019-04-04 11:51] LABS: Total Cells Counted 100
[2019-04-04 11:52] LABS: Platelet Estimate Consistent w Auto; RBC Morphology Normal; Smudge Cells Few
--- NOTE | 2019-04-04 12:38 | Event Note ---
Date: 04/04/19 44 YO Male presents to ED for evaluation of Atypical Chest Pain. Pt seen and evaluated in ED. Pt treated IAW chest pain protocol. Serial cardiac enzymes, EKG, Telemetry monitoring unremarkable. Pt D dimer was normal. Pt medically optimized and back to usual state of health. Pt discharged and instructed to F/u pcp 3-5 days, and F/U cardiology 3-5 days. Pt released to the custody of law enforcement. - General Limitations: No Limitations General appearance: alert, in no apparent distress - Head Head exam: Present: atraumatic, normocephalic - Eye Eye exam: Present: normal appearance - ENT ENT exam: Present: mucous membranes moist - Neck Neck exam: Present: normal inspection - Respiratory Respiratory exam: Present: normal lung sounds bilaterally. Absent: respiratory distress - Cardiovascular Cardiovascular Exam: Present: regular rate, normal rhythm. Absent: systolic murmur, diastolic murmur, rubs, gallop - GI/Abdominal GI/Abdominal exam: Present: soft, normal bowel sounds. Absent: distended, tend erness, guarding, rebound, rigid - Rectal Rectal exam: Present: deferred - Extremities Exam Extremities exam: Present: normal inspection - Back Exam Back exam: Present: normal inspection - Neurological Exam Neurological exam: Present: alert, oriented X3, CN II-XII intact. Absent: motor sensory deficit - Psychiatric Psychiatric exam: Present: normal affect, normal mood - Skin Skin exam: Present: warm, dry, intact, normal color. Absent: rash
--- NOTE | 2019-04-04 12:45 | Emergency Department Report ---
ED Chest Pain HPI - General Chief Complaint: Chest Pain Stated Complaint: CHEST PAIN Time Seen by Provider: 04/04/19 09:22 Source: EMS Mode of arrival: Stretcher Limitations: No Limitations - History of Present Illness Initial Comments: This is a 44-year-old male who states that he was detained by police after a routine traffic stop. He is in arrears up his child support. He had an outstanding warrant and therefore was told he was going to detention. He states he was very anxious about going to detention and then developed a sharp chest pain. He describes it somewhat radiating to his right shoulder. He had no associated symptoms to include nausea vomiting sweating shortness of breath. Pain resolved after a few minutes. He is essentially asymptomatic at this time his encounter and discussing his situation, living with the police detention attendant. He has no prior history of chest pain or cardiac issues. He states that he was admitted at this facility for a chest pain workup 2 years ago. However review of the previous medical records indicates that this is not accurate and that he was discharged. He denies family history of coronary artery disease to his knowledge. MD Complaint: chest pain -: Sudden Onset: during rest Pain Location: substernal Severity scale (0 -10): 0 Quality: sharp Improves With: nothing Worsens With: nothing Context: other (above stressor) re: denies: nausea, vomting, diaphoresis, dyspnea, sense of impending doom - Related Data Previous Rx's Medication Instructions Recorded Last Taken Type Ciprofloxacin HCl [Cipro] 500 mg PO BID 10 Days #20 tablet 11/01/17 Unknown Rx Ondansetron [Zofran TAB] 4 mg PO Q8HR PRN #20 tablet 11/01/17 Unknown Rx metroNIDAZOLE [Flagyl] 500 mg PO Q8HR 10 Days #30 tablet 11/01/17 Unknown Rx Ciprofloxacin HCl [Ciprofloxacin 500 mg PO Q12HR #20 tab 01/16/18 Unknown Rx TAB] metroNIDAZOLE [Flagyl] 500 mg PO Q8HR 10 Days #30 tablet 01/16/18 Unknown Rx Ibuprofen [Ibuprofen 800] 800 mg PO TID PRN #30 tablet 11/30/18 Unknown Rx levoFLOXacin [Levaquin TAB] 500 mg PO QDAY #10 tablet 11/30/18 Unknown Rx Allergies Allergy/AdvReac Type Severity Reaction Status Date / Time No Known Allergies Allergy Unverified 11/01/17 13:39 Heart Score - HEART Score History: Slightly suspicious EKG: Normal Age: < 45 Risk factors: 1-2 risk factors Troponin: < normal limit HEART Score: 1 - Critical Actions Critical Actions: 0-3 pts:0.9-1.7%risk of adverse cardiac event.Candidate for discharge ED Review of Systems ROS: Stated complaint: CHEST PAIN Other details as noted in HPI Constitutional: denies: chills, fever Eyes: denies: eye pain, eye discharge, vision change ENT: denies: ear pain, throat pain Respiratory: denies: cough, shortness of breath, wheezing Cardiovascular: chest pain. denies: palpitations Endocrine: no symptoms reported Gastrointestinal: denies: abdominal pain, nausea, diarrhea Genitourinary: denies: urgency, dysuria Musculoskeletal: denies: back pain, joint swelling, arthralgia Skin: denies: rash, lesions Neurological: denies: headache, weakness, paresthesias Psychiatric: denies: anxiety, depression Hematological/Lymphatic: denies: easy bleeding, easy bruising ED Past Medical Hx - Past Medical History Previous Medical History?: Yes Hx Hypertension: Yes Additional medical history: Diverticulitis - Surgical History Past Surgical History?: No - Social History Smoking Status: Current Every Day Smoker Substance Use Type: Alcohol - Medications Home Medications: Home Medications Medication Instructions Recorded Confirmed Last Taken Type Ciprofloxacin HCl [Cipro] 500 mg PO BID 10 Days #20 tablet 11/01/17 Unknown Rx Ondansetron [Zofran TAB] 4 mg PO Q8HR PRN #20 tablet 11/01/17 Unknown Rx metroNIDAZOLE [Flagyl] 500 mg PO Q8HR 10 Days #30 tablet 11/01/17 Unknown Rx Ciprofloxacin HCl [Ciprofloxacin 500 mg PO Q12HR #20 tab 01/16/18 Unknown Rx TAB] metroNIDAZOLE [Flagyl] 500 mg PO Q8HR 10 Days #30 tablet 01/16/18 Unknown Rx Ibuprofen [Ibuprofen 800] 800 mg PO TID PRN #30 tablet 11/30/18 Unknown Rx levoFLOXacin [Levaquin TAB] 500 mg PO QDAY #10 tablet 11/30/18 Unknown Rx ED Physical Exam - General Limitations: No Limitations General appearance: alert, in no apparent distress - Head Head exam: Present: atraumatic, normocephalic - Eye Eye exam: Present: normal appearance - ENT ENT exam: Present: mucous membranes moist - Neck Neck exam: Present: normal inspection - Respiratory Respiratory exam: Present: normal lung sounds bilaterally. Absent: respiratory distress - Cardiovascular Cardiovascular Exam: Present: regular rate, normal rhythm. Absent: systolic murmur, diastolic murmur, rubs, gallop - GI/Abdominal GI/Abdominal exam: Present: soft, normal bowel sounds. Absent: distended, tenderness, guarding, rebound - Rectal Rectal exam: Present: deferred - Extremities Exam Extremities exam: Present: normal inspection. Absent: calf tenderness - Back Exam Back exam: Present: normal inspection - Neurological Exam Neurological exam: Present: alert, oriented X3, CN II-XII intact. Absent: motor sensory deficit - Psychiatric Psychiatric exam: Present: normal affect, normal mood - Skin Skin exam: Present: warm, dry, intact, normal color. Absent: rash ED Course Vital Signs 04/04/19 04/04/19 04/04/19 09:05 09:34 11:33 Temperature 97.7 F Pulse Rate 98 H 89 86 Respiratory 20 18 20 Rate Blood Pressure 170/110 Blood Pressure 160/97 137/93 [Left] O2 Sat by Pulse 99 98 97 Oximetry - Reevaluation(s) Reevaluation #1: Essentially remained asymptomatic here. His EKG was normal. 2 negative troponins. He is stratified to a very low risk and appropriate for outpatient referral and follow-up. 04/04/19 12:44 USMAN score - Usman Score Age > 65: (0) No Aspirin use within the Past 7 Days: (0) No 3 or more CAD Risk Factors: (0) No 2 or more Angina events in past 24 hrs: (0) No Known CAD with more than 50% Stenosis: (0) No Elevated Cardiac Markers: (0) No ST Deviation Greater than 0.5mm: (0) No USMAN Score: 0 ED Medical Decision Making - Lab Data Result diagrams: 04/04/19 09:39 04/04/19 09:13 Laboratory Results - last 24 hr 04/04/19 04/04/19 04/04/19 09:13 09:39 12:02 WBC 4.3 L RBC 4.77 Hgb 15.0 Hct 43.6 MCV 91 MCH 31 MCHC 34 RDW 13.0 L Plt Count 194 [place] % (Auto) 9.3 H Eos % (Auto) 1.7 [place] # 0.4 Eos # 0.1 Baso # 0.0 Add Manual Diff Complete Total Counted 100 Seg Neutrophils % [employer] Supervisor Seg Neuts % (Manual) 30.0 L Band Neutrophils % 0 Lymphocytes % (Manual) 56.0 H Reactive Lymphs % (Man) 3.0 Monocytes % (Manual) 9.0 H Eosinophils % (Manual) 1.0 Basophils % (Manual) 1.0 Metamyelocytes % 0 Myelocytes % 0 Promyelocytes % 0 Blast Cells % 0 Nucleated RBC % Not Reportable Seg Neutrophils # 1.1 L Seg Neutrophils # Man 1.3 L Band Neutrophils # 0.0 Lymphocytes # (Manual) 2.4 Abs React Lymphs (Man) 0.1 Monocytes # (Manual) 0.4 Eosinophils # (Manual) 0.0 Basophils # (Manual) 0.0 Metamyelocytes # 0.0 Myelocytes # 0.0 Promyelocytes # 0.0 Blast Cells # 0.0 WBC Morphology Not Reportable Hypersegmented Neuts Not Reportable Hyposegmented Neuts Not Reportable Hypogranular Neuts Not Reportable Smudge Cells Few Toxic Granulation Not Reportable Toxic Vacuolation Not Reportable Dohle Bodies Not Reportable Pelger-Huet Anomaly Not Reportable Lit Rods Not Reportable Platelet Estimate Consistent w auto Clumped Platelets Not Reportable Plt Clumps, EDTA Not Reportable Large Platelets Not Reportable Giant Platelets Not Reportable Platelet Satelliting Not Reportable Plt Morphology Comment Not Reportable RBC Morphology Normal Dimorphic RBCs Not Reportable Polychromasia Not Reportable Hypochromasia Not Reportable Poikilocytosis Not Reportable Anisocytosis Not Reportable Microcytosis Not Reportable Macrocytosis Not Reportable Spherocytes Not Reportable Pappenheimer Bodies Not Reportable Sickle Cells Not Reportable Target Cells Not Reportable Tear Drop Cells Not Reportable Ovalocytes Not Reportable Helmet Cells Not Reportable [place] Bodies Not Reportable [place] Rings Not Reportable [place] Cells Not Reportable Bite Cells Not Reportable Crenated Cell Not Reportable Elliptocytes Not Reportable Acanthocytes (Spur) Not Reportable Rouleaux Not Reportable Hemoglobin C Crystals Not Reportable Schistocytes Not Reportable Malaria parasites Not Reportable [place] Bodies Not Reportable Hem Pathologist Commnt No Sodium 142 Potassium 4.5 Chloride 105.6 Carbon Dioxide 19 L Anion Gap 22 BUN 10 Creatinine 0.9 Estimated GFR > 60 BUN/Creatinine Ratio 11 Glucose 99 Calcium 9.0 Troponin T < 0.010 < 0.010 - EKG Data -: EKG Interpreted by Me EKG shows normal: sinus rhythm, axis, intervals, QRS complexes, ST-T waves Rate: normal - EKG Data Interpretation: other (somewhat low voltage) - Radiology Data Radiology results: report reviewed Chest x-ray no acute process Critical care attestation.: If time is entered above; I have spent that time in minutes in the direct care of this critically ill patient, excluding procedure time. ED Disposition Clinical Impression: Atypical chest pain Disposition: DC-01 TO HOME OR SELFCARE Is pt being admited?: No Does the pt Need Aspirin: No Condition: Stable Instructions: Chest Pain (ED) Additional Instructions: Return if recurrent symptoms as needed. Referrals: MARV CORRALES MD [Primary Care Provider] - [facility] Time of Disposition: 12:47
== END 2019-04-04 13:08 | disposition home or self-care (01) ==
LOC: ED 08:57
DX: R07.89 Other chest pain (principal); F41.9 Anxiety disorder, unspecified; I10 Essential (primary) hypertension; F17.200 Nicotine dependence, unspecified, uncomplicated
CPT/HCPCS: 36415; 71045; 80048; 84484; 85007; 85025; 85379; 93005; 93010